=== PATIENT | female | born 1940 | race Asian ===

== ENCOUNTER → 2016-10-17 | Outpatient (CLI) | payer MEDICARE, BC ==
[~2016-10-17] MED LIST: CELE50CA; ETAN50PE2; FOLI1POW; METH2.5T33; MULT-332; OMEP20CA9; TRAM50TA2 PO; ZOC10 PO
--- NOTE | 2016-10-18 11:31 | RADRPT ---
PROCEDURE: Ultrasound of the left axilla. CLINICAL INDICATION: Palpable lesion in the left axilla. TECHNIQUE: High-resolution sonography of the left axilla at the site of the palpable lesion was pe rformed in the axial and sagittal planes. COMPARISON: None FINDINGS: There is no fluid collection, lymphadenopathy, or mass. There is no abnormality at the site of the palpable lesion in the left axilla. IMPRESSION: 1. No abnormality at the site of the palpable lesion in the left axilla. 2. Any further management regarding the palpable lesion should be based on clinical grounds. RPTAT: QQ .Negrito Ward MD, MD Date Time Electronically viewed and signed by .Negrito Ward MD, MD on 10/18/2016 11:31 .R/
== END | disposition home or self-care (01) ==
LOC: U/S 09:40
PROVIDERS: ATTEND Internal Medicine
DX: M79.622 Pain in left upper arm (principal)